=== PATIENT | male | born 1960 ===

== ENCOUNTER 2019-05-12 06:29 | Day surgery (SDC) | payer OTHER ==
[2019-05-10 13:17] VITALS: BMI 26.4
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
[2019-05-12] MEDS ORDERED: COCAINE HCL 4% TOPICAL SOLUTION 4 ML BOTTLE TP ONE ×2 (07:32→08:23)
--- NOTE | 2019-05-12 07:52 | HP ---
History & Physical Update - History History: No Change - Physical Physical: No Change - Assessment Assessment: No Change - Plan Plan: No Change
[2019-05-12] MEDS ORDERED: MIDAZOLAM HCL 2 MG/2 ML SINGLE DOSE VIAL ONE (08:06)
[2019-05-12] MEDS ORDERED: KETOROLAC TROMETHAMINE 30 MG/1 ML VIAL ONE (08:06)
[2019-05-12] MEDS ORDERED: PROPOFOL 20 ML ONE ×2 (08:06)
[2019-05-12] MEDS ORDERED: ROCURONIUM BROMIDE 50 MG/5 ML SYRINGE ONE (08:06)
[2019-05-12] MEDS ORDERED: fentaNYL CITRATE 250 MCG/5 ML VIAL ONE (08:06)
[2019-05-12] MEDS ORDERED: LIDOCAINE HCL/PF 2% SDV 5ML VIAL ONE (08:06)
[2019-05-12] MEDS ORDERED: DEXAMETHASONE SOD PHOSPHATE 4 MG/1 ML VIAL ONE (08:06)
[2019-05-12] MEDS ORDERED: LIDOCAINE 2%/EPINEPHRINE 1:100000 (50 ML MD VIAL) PNB ONE ×2 (08:23)
[2019-05-12] MEDS ORDERED: GLYCOPYRROLATE 0.2 MG/1 ML VIAL ONE ×2 (09:49)
[2019-05-12] MEDS ORDERED: NEOSTIGMINE METHYLSULFATE 0.5 MG/ML - 10 ML MDV ONE (09:49)
--- NOTE | 2019-05-12 10:04 | OP ---
Operative Note - Note: Operative Date: 05/12/19 ([id number]) Pre-Operative Diagnosis: chronic pansinusitis. right inferior turbinate hypertrophy. anosmia Operation: bilateral endoscopic ethmoidectomy anterior. bilateral endoscopic maxillary antrostomy with removal of tissue. bilateral endoscopic frontal sinus exploration. left sphenoidotomy. lysis intranasal synechia bilateral. right inferior turbinate outfracture and mural (superficial) cauterization Findings: chronic sinusitis existiing large septal perforation absent left inferior turbinate and middle turbinate bilateral synechia septal margin to latal frances and right middle turbinate remnant, right inferior turbinate/expanded middle meatus obstructed maxillary sinuses with pus scarred ethmoid sinuses opened frontal sinus recesses explored sphenoethmoid recesses explored Implants: none Post-Operative Diagnosis: Same as Pre-op Surgeon: Felipe Herrera Anesthesiologist/FORESTRY WORKER: Felipe Villagomez Anesthesia: General Specimens Removed: right and left ethmoid tissue. right and left maxillary sinus tissue. right maxillary sinus culture Estimated Blood Loss (mls): 20 Blood Volume Replaced (mls): 0 Operative Report Dictated: Yes
[2019-05-12] MEDS ORDERED: PROMETHAZINE HCL 25 MG/1 ML VIAL IVPB PRN (10:08)
[2019-05-12] MEDS ORDERED: ONDANSETRON 4 MG/2 ML VIAL IVPUSH PRN (10:08)
[2019-05-12] MEDS ORDERED: oxyCODONE HCL 5 MG TABLET PO PRN (10:08)
[2019-05-12] MEDS ORDERED: ACETAMINOPHEN 325 MG TABLET (FP) PO PRN (10:09)
[2019-05-12] MEDS ORDERED: LACTATED RINGERS SOLUTION 1,000 ML IV SCH (10:15)
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
[2019-05-12 14:24] VITALS: BP 142/74; PULSE 63; TEMP 98
--- NOTE | 2019-05-13 16:28 | PATH ---
Surgical Pathology Report Patient Name: CURTIS MICHAUD [facility]. Rec. #: [id number] /Age/Gender: 1960 (Age: 58) / M Account: [id number] Location: [facility] SURGICAL Taken: 05/12/2019 Received: 05/12/2019 Reported: 05/13/2019 Physicians: Felipe Herrera M.D. Specimen(s) Received A: LEFT ETHMOID SINUS B: RIGHT MAXILLARY SINUS C: LEFT MAXILLARY SINUS D: RIGHT ETHMOID SINUS Clinical History Hyper nasal turbinates, CHR ethmoid, maxillary, sphenoid sinus Final Diagnosis A. ETHMOID SINUS, LEFT, ANTERIOR ETHMOIDECTOMY: RESPIRATORY MUCOSA WITH MILD CHRONIC SINUSITIS AND BONE. DETACHED FRAGMENTS OF FIBRIN AND ACUTE INFLAMMATORY INFILTRATE. B. MAXILLARY, RIGHT, MAXILLARY ANTROSTOMY: RESPIRATORY MUCOSA WITH MARKED ACUTE AND CHRONIC SINUSITIS AND STROMAL FIBROSIS. C. MAXILLARY, LEFT, ANTROSTOMY: RESPIRATORY MUCOSA WITH MARKED ACUTE AND CHRONIC SINUSITIS AND STROMAL FIBROSIS. D. ETHMOID SINUS, RIGHT, ANTERIOR ETHMOIDECTOMY: RESPIRATORY MUCOSA AND BONE WITHOUT SIGNIFICANT PATHOLOGIC FINDINGS. Electronically Signed Kelli Shen M.D. Gross Description A. Received in formalin labeled "left ethmoid sinus," is a 1.4 x 1.2 x 0.3 cm aggregate of malik fragments of cartilaginous and soft tissues. The specimen is submitted in toto in one cassette, following decalcification. B. Received in formalin labeled "right maxillary," are 2 malik portions of soft tissue measuring 0.8 x 0.4 x 0.2 cm and 1.3 x 1.1 x 0.2 cm. The specimens are submitted in toto in one cassette. C. Received in formalin labeled "left maxillary," is a 0.8 x 0.7 x 0.2 cm aggregate of malik fragments of cartilaginous and soft tissues. The specimen is submitted in toto in one cassette, following decalcification. D. Received in formalin labeled "right ethmoid sinus," is a 0.5 x 0.4 x 0.2 cm malik portion of possible bone or cartilage. The specimen is submitted in toto in one cassette, following decalcification. /05/12/201905/12/2019
== END 2019-05-12 13:15 | disposition home or self-care (01) ==
LOC: JASU-SURG 06:29
PROVIDERS: ATTEND Otolaryngology
PROC: 09TU8ZZ Resection of Right Ethmoid Sinus, Via Natural or Artificial Opening Endoscopic (ICD-10-PCS; 2019-05-12)
PROC: 09TV8ZZ Resection of Left Ethmoid Sinus, Via Natural or Artificial Opening Endoscopic (ICD-10-PCS; principal; 2019-05-12 08:00)
DX: J32.4 Chronic pansinusitis (principal); J34.3 Hypertrophy of nasal turbinates; R43.0 Anosmia; I10 Essential (primary) hypertension; E11.9 Type 2 diabetes mellitus without complications
CPT/HCPCS: 82962; 87070; 87186; 88304-TC; 88311-TC; 94760